=== PATIENT | male | born 1975 | race Caucasian/White ===

== ENCOUNTER 2017-09-06 02:01 | Emergency (ER) | payer OTHER, MEDICAID | END 2017-09-06 08:26 | disposition home or self-care (01) | LOC: FTE 02:01 | DX: J02.9 Acute pharyngitis, unspecified (principal) | CPT/HCPCS: 70360; 99283-25 ==

== ENCOUNTER 2017-12-17 20:53 | Emergency (ER) | payer OTHER ==
[2017-12-17] MEDS: IBUPROFEN 800 MG TAB PO (23:58)
[2017-12-18] MEDS: DIPHTH/TET/ACEL PERTUSS (ADULT) 0.5 ML VIAL IM (00:51)
[2017-12-18] MEDS: IBUPROFEN 200 MG TAB PO (00:53)
== END 2017-12-18 01:41 | disposition home or self-care (01) ==
LOC: FTE 20:53
DX: S61.012A Laceration without foreign body of left thumb without damage to nail, initial encounter (principal); W26.0XXA Contact with knife, initial encounter; Y92.9 Unspecified place or not applicable; Z23 Encounter for immunization
CPT/HCPCS: 12001; 90471; 90715; 99283-25

== ENCOUNTER 2018-06-13 00:23 | Emergency (ER) | payer OTHER ==
[2018-06-13] MEDS: KETOROLAC 30 MG INJ IM (01:37)
== END 2018-06-13 06:43 | disposition left against medical advice (07) ==
LOC: FTE 06:43
DX: S90.31XA Contusion of right foot, initial encounter (principal); W01.0XXA Fall on same level from slipping, tripping and stumbling without subsequent striking against object, initial encounter; Y92.9 Unspecified place or not applicable
CPT/HCPCS: 73610; 73610-RT; 73630; 96372; 99284-25

== ENCOUNTER 2019-02-03 23:48 | Emergency (ER) | payer OTHER ==
[2019-02-04] MEDS: DIPHTH/TET/ACEL PERTUSS (ADULT) 0.5 ML VIAL IM* ×2 (02:30→02:33)
[2019-02-04] MEDS: SODIUM CHLORIDE 0.9% 1L IRRIG IRR (02:30)
[2019-02-04] MEDS: TETRACAINE 0.5% 4 ML OPH BOTH EYES (02:32)
[2019-02-04] MEDS: FLUORESCEIN STRIP BOTH EYES (02:32)
== END 2019-02-04 05:19 | disposition home or self-care (01) ==
LOC: FTE 23:48
DX: S05.02XA Injury of conjunctiva and corneal abrasion without foreign body, left eye, initial encounter (principal); X58.XXXA Exposure to other specified factors, initial encounter; Y92.9 Unspecified place or not applicable
CPT/HCPCS: 90715; 99283